=== PATIENT | female | born 1995 | race Caucasian/White ===

== ENCOUNTER 2018-09-06 20:12 | Emergency (ER) | payer OTHER ==
[~2018-09-06] VITALS: Ht 172.7 cm; Wt 77.1 kg
[2018-09-07] MEDS ORDERED: DOLOGESIC-DF 51 EACH PO (02:03)
== END 2018-09-07 02:15 | disposition home or self-care (01) ==
LOC: ER 20:12
DX: B34.9 Viral infection, unspecified (principal)